=== PATIENT | female | born 1980 | race Caucasian/White ===

== ENCOUNTER 2022-06-14 16:36 | Inpatient (IN) | payer MEDICAID ==
[~2022-06-14] VITALS: Ht 154.7 cm; Wt 62.2 kg
[2022-06-14] MEDS ORDERED: PROMETHAZINE HCL 25 MG TABLET PO PRN (20:45)
[2022-06-14] MEDS ORDERED: ZOLPIDEM TARTRATE 10 MG TABLET PO PRN (20:45)
[2022-06-14] MEDS ORDERED: GuaiFENesin/D-METHORPHAN [SUGAR-FREE] 200-20MG/10 ML SYRUP UDCUP PO PRN (20:45)
[2022-06-14] MEDS ORDERED: MAG HYDROX/AL HYDROX/SIMETH ES 30 ML SUSPENSION UDCUP PO PRN (20:45)
[2022-06-14] MEDS ORDERED: TUBERCULIN, PURIFIED PROTEIN DERIVATIVE 5 TU/0.1 ML SYRINGE ID ONE (20:45)
[2022-06-14] MEDS ORDERED: MAGNESIUM HYDROXIDE SUSPENSION 30 ML UDCUP PO PRN (20:45)
[2022-06-14] MEDS ORDERED: LOPERAMIDE HCL 2 MG CAPSULE PO PRN (20:45)
[2022-06-14] MEDS ORDERED: ACETAMINOPHEN 325 MG TABLET PO PRN (20:45)
[2022-06-14] MEDS ORDERED: GABAPENTIN 300 MG CAPSULE PO PRN (20:45)
[2022-06-15] MEDS: MELATONIN 5 MG TABLET PO SCH ×2 (01:52→20:58)
[2022-06-15] MEDS: DIVALPROEX SODIUM 250 MG ER TABLET PO SCH ×5 (01:52→20:58)
[2022-06-15 02:50] VITALS: BP 134/88
[2022-06-15 06:49] LABS: BASOPHILS % (AUTO) 0.8 % (0.0-2.0); EOSINOPHILS % (AUTO) 0.3 % (1.0-6.0); HEMATOCRIT 36.7 % (36-46); HEMOGLOBIN 12.5 g/dL (12.0-16.0); LYMPHOCYTES # (AUTO) 3.9 K/uL (1.0-4.8); LYMPHOCYTES % (AUTO) 35.8 % (22.0-44.0); MEAN CORPUSCULAR HEMOGLOBIN 28.8 pg (26.0-34.0); MEAN CORPUSCULAR HGB CONC 34.1 G/dL (31.0-37.0); MEAN CORPUSCULAR VOLUME 84 fL (80-100); MONOCYTES # (AUTO) 0.9 K/uL (0.1-1.0); MONOCYTES % (AUTO) 8.6 % (2.0-9.0); NEUTROPHILS # (AUTO) 5.9 K/uL (1.8-7.7); NEUTROPHILS % (AUTO) 54.5 % (40.0-70.0); PLATELET COUNT (AUTO) 285 K/uL (150-450); RED BLOOD CELL COUNT(AUTO) 4.35 MIL/uL (4.00-5.20)
[2022-06-15 07:05] LABS: HEMOGLOBIN A1C 5.6 % (3.8-5.6)
[2022-06-15 07:22] LABS: ALANINE AMINOTRANSFERASE 20 U/L (12-78); ALBUMIN 3.7 g/dL (3.4-5.0); ALKALINE PHOSPHATASE 74 U/L (46-116); ANION GAP 10 mmol/L (8-16); ASPARTATE AMINOTRANSFERASE 42 U/L (15-37); BILIRUBIN,TOTAL 0.9 mg/dL (0.1-1.0); CALCIUM, TOTAL 8.9 mg/dL (8.8-10.5); CARBON DIOXIDE 27 mmol/L (22-29); CHLORIDE 103 mmol/L (98-107); CHOL/HDL RATIO 2.9 (3.9-5.7); CHOLESTEROL 191 mg/dL (131-200); CREATININE 0.58 mg/dL (0.60-1.30); GLOMERULAR FILTR. RATE CALC > 60 mL/min (>60); GLUCOSE,RANDOM 92 mg/dL (70-110); HDL CHOLESTEROL 67 mg/dL (40-60); LDL CHOL (CALC.) 112 mg/dL (0-130); POTASSIUM 3.3 mmol/L (3.5-5.1); SODIUM SERUM 140 mmol/L (136-145); THYROID STIMULATING HORMONE 0.27 uIU/mL (0.36-3.74); TOTAL PROTEIN, SERUM 7.6 g/dL (6.4-8.2); TRIGLYCERIDES 62 mg/dL (15-150); UREA NITROGEN, BLOOD 14 mg/dL (7-18)
[2022-06-15 08:00] VITALS: BP 147/87
[2022-06-15] MEDS: DULoxetine HCL 20 MG CAPSULE PO SCH (08:15)
[2022-06-15] MEDS: ACAMPROSATE CALCIUM 333 MG DR TABLET PO SCH ×3 (08:15→18:57)
[2022-06-15] MEDS: FOLIC ACID 1 MG TABLET PO SCH (08:16)
[2022-06-15] MEDS: THIAMINE 100 MG TABLET PO SCH ×2 (08:16→18:57)
[2022-06-15] MEDS: MULTIVITAMINS WITH MINERALS, THERAPEUTIC TABLET PO SCH (08:16)
[2022-06-15] MEDS: PARoxetine HCL 20 MG TABLET PO SCH (08:16)
[2022-06-15] MEDS: GABAPENTIN 300 MG CAPSULE PO SCH ×4 (08:17→20:58)
[2022-06-15] MEDS: HydrOXYzine PAMOATE 50 MG CAPSULE PO PRN ×2 (08:31→14:07)
[2022-06-15] MEDS: OMEGA-3/DHA/EPA/FISH OIL 1,000 MG CAPSULE PO SCH (09:18)
[2022-06-15] MEDS: OLANZapine 5 MG RAPDIS TABLET PO PRN ×2 (09:19→14:08)
[2022-06-15 16:08] VITALS: BP 132/85
[2022-06-15] MEDS ORDERED: POTASSIUM CHLORIDE 20 MEQ ER TABLET PO ONE (22:45)
[2022-06-16 04:15] VITALS: BP 129/88
[2022-06-16] MEDS: TraMADol HCL 50 MG TABLET PO PRN ×2 (04:18→13:17)
[2022-06-16] MEDS: OLANZapine 5 MG RAPDIS TABLET PO PRN (08:17)
[2022-06-16] MEDS: HydrOXYzine PAMOATE 50 MG CAPSULE PO PRN ×2 (08:17→20:15)
[2022-06-16] MEDS: GABAPENTIN 300 MG CAPSULE PO SCH ×4 (08:18→21:15)
[2022-06-16] MEDS: FOLIC ACID 1 MG TABLET PO SCH (08:18)
[2022-06-16] MEDS: DIVALPROEX SODIUM 250 MG ER TABLET PO SCH ×4 (08:18→20:15)
[2022-06-16] MEDS: PANTOPRAZOLE SODIUM 40 MG DR TABLET PO SCH (08:18)
[2022-06-16] MEDS: PARoxetine HCL 20 MG TABLET PO SCH (08:18)
[2022-06-16] MEDS: MULTIVITAMINS WITH MINERALS, THERAPEUTIC TABLET PO SCH (08:18)
[2022-06-16] MEDS: OMEGA-3/DHA/EPA/FISH OIL 1,000 MG CAPSULE PO SCH (08:18)
[2022-06-16] MEDS: DULoxetine HCL 20 MG CAPSULE PO SCH (08:18)
[2022-06-16] MEDS: THIAMINE 100 MG TABLET PO SCH ×2 (08:18→16:53)
[2022-06-16] MEDS: ACAMPROSATE CALCIUM 333 MG DR TABLET PO SCH ×3 (08:19→16:53)
[2022-06-16 09:47] VITALS: BP 154/99
[2022-06-16 13:17] VITALS: BP 146/89
[2022-06-16 16:00] VITALS: BP 114/62
[2022-06-16] MEDS ORDERED: OMEG-135 PO (16:23)
[2022-06-16] MEDS ORDERED: ACAM333T7 PO (16:23)
[2022-06-16] MEDS ORDERED: GABA-1181 PO (16:23)
[2022-06-16] MEDS ORDERED: DULO20CA71 PO (16:23)
[2022-06-16] MEDS ORDERED: DIVA-85 PO (16:23)
[2022-06-16] MEDS ORDERED: MELA5TAB40 PO (16:23)
[2022-06-16] MEDS: MELATONIN 5 MG TABLET PO SCH (20:15)
[2022-06-17 03:20] VITALS: BP 144/93
[2022-06-17] MEDS: TraMADol HCL 50 MG TABLET PO PRN (03:28)
[2022-06-17 08:23] LABS: ANION GAP 17 mmol/L (8-16); CARBON DIOXIDE 23 mmol/L (22-29); CHLORIDE 103 mmol/L (98-107); CREATININE 0.66 mg/dL (0.60-1.30); GLOMERULAR FILTR. RATE CALC > 60 mL/min (>60); GLUCOSE,RANDOM 94 mg/dL (70-110); POTASSIUM 3.3 mmol/L (3.5-5.1); SODIUM SERUM 143 mmol/L (136-145); UREA NITROGEN, BLOOD 11 mg/dL (7-18); VALPROIC ACID 54 mcg/mL (50-100)
[2022-06-17] MEDS: OLANZapine 5 MG RAPDIS TABLET PO PRN (08:38)
[2022-06-17] MEDS: HydrOXYzine PAMOATE 50 MG CAPSULE PO PRN (08:38)
[2022-06-17] MEDS: MULTIVITAMINS WITH MINERALS, THERAPEUTIC TABLET PO SCH ×2 (08:39→08:51)
[2022-06-17] MEDS: GABAPENTIN 300 MG CAPSULE PO SCH (08:39)
[2022-06-17] MEDS: ACAMPROSATE CALCIUM 333 MG DR TABLET PO SCH (08:39)
[2022-06-17] MEDS: THIAMINE 100 MG TABLET PO SCH (08:39)
[2022-06-17] MEDS: DIVALPROEX SODIUM 250 MG ER TABLET PO SCH (08:39)
[2022-06-17] MEDS: PANTOPRAZOLE SODIUM 40 MG DR TABLET PO SCH (08:39)
[2022-06-17] MEDS: FOLIC ACID 1 MG TABLET PO SCH (08:39)
[2022-06-17] MEDS: OMEGA-3/DHA/EPA/FISH OIL 1,000 MG CAPSULE PO SCH ×2 (08:43→08:50)
[2022-06-17] MEDS ORDERED: DULoxetine HCL 20 MG CAPSULE PO SCH (09:00)
[2022-06-17 09:04] VITALS: BP 144/97
== END 2022-06-17 10:50 | disposition home or self-care (01) | DRG 751 ==
LOC: 3EI 06-15 01:00
PROVIDERS: ADMIT Psychiatry & Neurology Psychiatry; ATTEND Psychiatry & Neurology Psychiatry
DX: F33.9 Major depressive disorder, recurrent, unspecified (principal); E05.90 Thyrotoxicosis, unspecified without thyrotoxic crisis or storm; E87.6 Hypokalemia; F17.200 Nicotine dependence, unspecified, uncomplicated; G89.29 Other chronic pain; M16.10 Unilateral primary osteoarthritis, unspecified hip; Z55.9 Problems related to education and literacy, unspecified; Z59.9 Problem related to housing and economic circumstances, unspecified; Z63.9 Problem related to primary support group, unspecified; Z65.3 Problems related to other legal circumstances; Z88.6 Allergy status to analgesic agent
CPT/HCPCS: 80048; 80053; 80061; 80164; 83036; 84439; 84443; 85025; 86592; Q9967